=== PATIENT | male | born 1950 | race African-American/Black ===

== ENCOUNTER → 2021-01-20 | Emergency (ER) | payer OTHER ==
[~2021-01-20] VITALS: Ht 193 cm; Wt 181.9 kg
[~2021-01-20] MED LIST: ASA81BEC PO; CARVEDILOL12.5 MG PO; FERROUS SULFAT325 M2 PO; K-DUR 20 MEQ T20 MEQ PO; LIPITOR 40 MG T40 M1 PO; METFORMIN HCL1000 MG PO; PROAIR HFA8.5 GM INH; PROTONIX40 M2 PO; SPIRONOLACTONE25 MG PO
--- NOTE | ~2021-01-20 | EMS ---
[address] [address] EMS Patient Care Report Name: HUNTER ALONSO Room #: [facility]#: [id number] Admission: 01/20/21 Attend Phys: Discharge: Date of : 54 Report #: [id number] THIS REPORT FOR: //name// Report Transmitted: 01/20/2021 03:12 EMS Care Summary [place], [place]/[facility] Incident [id number] @ 01/20/2021 01:08 Incident [address] [place], [place] [id number] Patient HUNTER ALONSO Male, 70 Years 1950 Patient Address [address] [place], [place] [id number] Patient History Congestive Heart Failure (CHF),Diabetes,Hypertension (HTN),Hyperlipidemia,Gastro-Esophageal Reflux Disease (GERD),Morbid Obesity,Edema,Urinary Incontinence,Knee Replacement, Patient Allergies No known allergies, Patient Medications Metformin, Insulin, Lasix, Aspirin, Furosemide, Humalog, Carvedilol, Meloxicam, Lantus, Novolog, Atorvastatin, Gabapentin, Chief Complaint Dizziness, knee pain, weakness Disposition Transported No Lights/[place] Reason Breathing Problem Transported To [facility] Narrative M505, R09 responded immediately to the scene of Breathing Problem. R09 arrived [facility] [address] [place] [address] EMS Patient Care Report Name: HUNTER ALONSO Room #: REG [facility]#: [id number] Admission: 01/20/21 Attend Phys: Discharge: Date of : 54 Report #: [id number] first on scene and initiated BLS care. Upon arrival, pt found [facility] and being walked out by R09 crew. Pt was brought home by [facility] about an hour ago after being seen at [facility]. He admits he was seen for similar complaints to why he's calling now. However, he doesn't feel "they did nothing for me." Says he wanted to be admitted and also to have something done for his knee. Since being home, pt has looked up the number for [facility] and reportedly called in and claims they told him "They'd take care of me." Assisted pt in walking out to cot. Secured on via straps, rails up, then moved to back of ambulance. Primary ALS assessment performed. Pt advised that [facility] isn't the [facility] and he should go to a closer hospital since he's claiming to be SOA. Pt then admits he can make it to [facility] and that "It's not as bad as it sounds and I'm not going to stop breathing before we get there." Transport to [facility] then initiated after pt unwilling to go to a closer hospital. Contacted with a 7 minute ETA, and report given. Pt remains stable throughout transport. SPo2 no less than 96% on room air. Finally arrived at and pt to ER 09. Report to RN then care released. Initial Vitals @01:20P: 91,R: 19,BP: 129/79,Pain: 0/10,GCS: 15,Glucose: 337,SpO2: 98,Revised Trauma: 12, Assessments @:19MENTAL:Person Oriented,Time Oriented,Event Oriented,Place Oriented,SKIN:HEENT:LUNG SOUNDS:ABDOMEN:PELVIS//GI:EXTREMITIES:PULSE:NEURO: Impression Dizziness Procedures @01:19ALS AssessmentResponse: UnchangedSucceeded Timeline 01:05,Call Received 01:05,Dispatch Notified 01:08,Dispatched 01:09,En Route 01:16,On Scene 01:17,At Patient 01:19,ALS Assessment,Response: UnchangedSucceeded, 01:20,BP: 129/79 M,PULSE: 91,RR: 19 R,SPO2: 98 Ox,ETCO2: ,B,PAIN: 0,GCS: 15, 01:29,Depart Scene [address] [address] EMS Patient Care Report Name: HUNTER ALONSO [id number] Admission: 01/20/21 Attend Phys: Discharge: Date of : 54 Report #: [id number] 01:54,At Destination 02:10,Call Closed Disclaimer [email or web address] Copyright 2020 [employer] This EMS Care Summary contains data elements from the applicable legal record (which may be displayed differently). It is designed to provide pertinent information for the following purposes: continuity of care, clinical quality, and state data reporting. The complete legal record is available to ED staff and administrators of the receiving hospital in [facility]s Patient Tracker. All data is provided "as is."
[2021-01-20 03:10] LABS: ABSOLUTE NEUTROPHILS 10.2 thou/uL (1.4-8.2); BASOPHILS 0.2 % (0.0-2.0); EOSINOPHILS 3.8 % (0.0-3.0); HEMATOCRIT 35.6 % (42.0-52.0); HEMOGLOBIN 11.5 gm/dL (14.0-18.0); LYMPHOCYTES 12.4 % (24.0-44.0); MCH 27.6 pg (26.0-34.0); MCHC 32.4 g/dL (28.0-37.0); MCV 85.1 fL (80.0-100.0); MONOCYTES 5.1 % (1.0-8.0); PLATELET COUNT 244 thou/uL (150-400); POLYS 78.5 % (36.0-66.0); RBC 4.18 mil/uL (4.50-6.00); RDW 15.5 % (10.5-14.5)
[2021-01-20 03:26] LABS: ANION GAP 8 mmol/L (7-16); BUN 23 mg/dL (7-18); CALCIUM 8.7 mg/dL (8.5-10.1); CHLORIDE 92 mmol/L (98-107); CO2 31 mmol/L (21-32); CREATININE 1.3 mg/dL (0.7-1.3); GLUCOSE 305 mg/dL (74-106); POTASSIUM 4.8 mmol/L (3.5-5.1); SODIUM 131 mmol/L (136-145)
[2021-01-20 03:36] LABS: ALBUMIN 3.2 g/dL (3.4-5.0); SGOT 44 U/L (15-37); SGPT 50 U/L (16-63); TOTAL BILIRUBIN 0.5 mg/dL (0.2-1.0); TOTAL PROTEIN 7.8 g/dL (6.4-8.2); TROPONIN-I <0.06 ng/mL (<0.06)
[2021-01-20 03:45] VITALS: BP 107/60
[2021-01-20 03:47] LABS: URINE BILIRUBIN NEGATIVE (Negative); URINE BLOOD NEGATIVE (Negative); URINE CLARITY CLEAR; URINE COLOR YELLOW; URINE GLUCOSE-RANDOM* 3+ (Negative); URINE KETONES NEGATIVE (Negative); URINE LEUKOCYTES-REFLEX NEGATIVE (Negative); URINE NITRITE-REFLEX NEGATIVE (Negative); URINE PROTEIN (DIPSTICK) NEGATIVE (Negative); URINE UROBILINOGEN 0.2 E.U./dl (0.2-1.0)
--- NOTE | 2021-01-20 09:23 | EKG ---
[address] [address] ELECTROCARDIOGRAM REPORT Name: HUNTER ALONSO Divya Room #: [facility]#: [id number] Admission: 01/20/21 Attend Phys: Discharge: Date of : 54 Report #: [id number] [facility] ED Test Date: 2021-01-20 Test Time: 02:10:54 Pat Name: HUNTER ALONSO Department: Room: Gender: M Chief Cardiopulmonary Technologist: natalie martinez : 1950 Requested By: Latosha Holder Order Number: [id number] MD: Jake Beasley Measurements Intervals [place] Rate: 72 P: 44 NH: 176 QRS: 40 QRSD: 94 T: 59 QT: 388 QTc: 425 Interpretive Statements Sinus rhythm Low voltage, precordial leads No previous ECG available for comparison Electronically Signed On 01-20-2021 9:23:22 CDT by Jake Beasley [email or web address] <ELECTRONICALLY SIGNED> By: Jake Beasley MD, [facility] 01/20/21 0923 0210 0210 Jake Beasley MD, FACC /EPI
== END ==
LOC: ER 01:58
PROVIDERS: Emergency Medicine
DX: S09.90XA Unspecified injury of head, initial encounter (principal); M25.561 Pain in right knee; M25.562 Pain in left knee; E11.65 Type 2 diabetes mellitus with hyperglycemia; I11.0 Hypertensive heart disease with heart failure; I50.9 Heart failure, unspecified; Z79.82 Long term (current) use of aspirin; Z79.899 Other long term (current) drug therapy; W11.XXXA Fall on and from ladder, initial encounter; Y93.89 Activity, other specified; Y92.89 Other specified places as the place of occurrence of the external cause; Y99.8 Other external cause status